=== PATIENT | female | born 1945 | race Caucasian/White ===

== ENCOUNTER → 2018-03-24 11:01 | Outpatient (CLI) | payer MEDICARE, SELFPAY ==
--- NOTE | 2018-03-24 11:03 | RAD_ITS ---
STUDY: X-RAY - LEFT KNEE REASON FOR EXAM: Female, 72 years old. Chronic left knee pain. TECHNIQUE: 4 view(s) of the knee. COMPARISON: June 18, 2015 FINDINGS: There is generalized osteopenia unchanged. Normal visualized distal femur. Normal visualized proximal tibia and fibula. Normal proximal tibiofibular articulation. 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 The soft tissue structures are unremarkable. RAD/Knee 4 or More Views IMPRESSION: Stable osteopenia with tricompartmental arthrosis as described. Electronically Signed: Luis Fernando Lopez MD at 17:16 EDT , Service support ,
== END ==
PROVIDERS: Family Provider Internal Medicine; PCP Internal Medicine; Visit Provider Orthopaedic Surgery
DX: M25.562 Pain in left knee (principal)
CPT/HCPCS: 73564

== ENCOUNTER → 2018-05-20 13:26 | Outpatient (CLI) | payer MEDICARE, SELFPAY ==
--- NOTE | 2018-05-20 13:30 | BI_ITS ---
MAMMOGRAPHY - BILATERAL SCREENING REASON FOR EXAM: Female, 72 years old. Routine annual screening examination. PERTINENT HISTORY: Personal history of breast cancer. Prior left lumpectomy with radiation therapy. Aunt with breast cancer. TECHNIQUE: Digital bilateral breast edwin (3D mammographic acquisition) in the CC and MLO projections. 2-D mediolateral oblique (MLO) and craniocaudad (CC) views of both breasts were obtained. CAD: Full Field Digital Mammography with Computer Added Detection was performed. COMPARISON: Comparison is made with prior study dated March 24, 2017 and May 15, 2015. FINDINGS: Breast Composition: There are scattered areas of fibroglandular density. There are no dominant masses or suspicious calcifications. Once again, there is asymmetry of breast tissue where more breast tissue is seen in the retrocrural region of the right breast as compared to the left side. Stable appearance of the benign-appearing bilateral axillary lymph nodes. No other significant abnormalities are identified. There has been no significant change since the prior study. BI/SCREENING MAMM (CAD), BILAT IMPRESSION: Stable bilateral screening mammogram. Yearly follow-up mammogram recommended. (A) ASSESSMENT CATEGORY: BIRADS Category 2: Benign. A letter regarding these results will be sent to the patient by the facility within 30 days. Approximately 10% of breast cancers are not detected by mammography. A normal mammogram should not delay biopsy of a clinically suspicious abnormality. [id number] Electronically Signed: Prashant Gutierrez MD at 13:39 EST Tel [phone], Service support ,
== END ==
PROVIDERS: Family Provider Internal Medicine; PCP Internal Medicine; Referring Provider Internal Medicine; Visit Provider Internal Medicine
DX: Z12.31 Encounter for screening mammogram for malignant neoplasm of breast (principal)
CPT/HCPCS: 77063; 77067

== ENCOUNTER → 2019-06-21 13:05 | Outpatient (CLI) | payer MEDICARE, SELFPAY ==
--- NOTE | 2019-06-21 13:08 | BI_ITS ---
MAMMOGRAPHY - BILATERAL SCREENING REASON FOR EXAM: Female, 73 years old. Routine annual screening examination. PERTINENT HISTORY: Personal history of breast cancer. Prior left lumpectomy and radiation treatment. Affect with breast cancer. TECHNIQUE: Digital bilateral breast sarika (3D mammographic acquisition) in the CC and MLO projections. 2-D mediolateral oblique (MLO) and craniocaudad (CC) views of both breasts were obtained. CAD: Full Field Digital Mammography with Computer Added Detection was performed. COMPARISON: Comparison is made with prior examination dated May 20, 2018 and March 24, 2017. FINDINGS: Breast Composition: There are scattered areas of fibroglandular density. There are no dominant masses or suspicious calcifications. Stable asymmetry of breast tissue with more breast tissue is seen in the retroareolar region of the right breast as compared to the left side. Stable fat-containing bilateral axillary lymph nodes. No other significant abnormalities are identified. There has been no significant change since the prior study. BI/SCREEN MAMM (CAD) W/SARIKA BILAT IMPRESSION: Stable bilateral screening mammogram. Yearly follow-up mammogram recommended. (A) ASSESSMENT CATEGORY: BIRADS Category 2: Benign. A letter regarding these results will be sent to the patient by the facility within 30 days. Approximately 10% of breast cancers are not detected by mammography. A normal mammogram should not delay biopsy of a clinically suspicious abnormality. [id number] Electronically Signed: Prashant Gutierrez, at 14:50 EST , Service support ,
== END ==
PROVIDERS: Family Provider Internal Medicine; PCP Internal Medicine; Referring Provider Internal Medicine; Visit Provider Internal Medicine
DX: Z12.31 Encounter for screening mammogram for malignant neoplasm of breast (principal)
CPT/HCPCS: 77063; 77067

== ENCOUNTER → 2019-06-29 12:42 | Outpatient (CLI) | payer MEDICARE, SELFPAY ==
[2019-06-21 14:36] VITALS: BMI 28.9
--- NOTE | 2019-06-29 12:43 | CDU_ITS ---
Reason For Study: vertigo Rt. Velocities/BP Lt. Velocities/BP Prox CCA 122.5/20.0 cm/sec. Prox CCA 130.1/22.5 cm/sec. Mid CCA 117.4/20.6 cm/sec. Mid CCA 95.5/24.3 cm/sec. Dist CCA 132.1/22.5 cm/sec. Dist CCA 79.0/21.2 cm/sec. Prox ICA 64.2/17.6 cm/sec. Prox ICA 110.1/17.0 cm/sec. Mid ICA 74.0/15.1 cm/sec. Mid ICA 75.3/11.4 cm/sec. Dist ICA 66.7/21.2 cm/sec. Dist ICA 55.8/18.7 cm/sec. Rt. ICA/CCA = .6. Lt. ICA/CCA = .8. Prox ECA 92.5/7.7 cm/sec. Prox ECA 102.5/8.9 cm/sec. Rt. Vert. 64.2/17.6 cm/sec. Lt. Vert. 61.9/14.6 cm/sec. Right Extracranial There is intimal thickening but no significant atherosclerotic plaque noted in the right common carotid artery. There is heterogeneous, irregular atherosclerotic plaque noted in the right internal carotid artery. There is intimal thickening but no significant atherosclerotic plaque noted in the right external carotid artery. Antegrade flow is noted in the right vertebral artery. Left Extracranial There is intimal thickening but no significant atherosclerotic plaque noted in the left common carotid artery. There is heterogeneous, irregular atherosclerotic plaque noted in the left internal carotid artery. There is intimal thickening but no significant atherosclerotic plaque noted in the left external carotid artery. Antegrade flow is noted in the left vertebral artery. Procedure Carotid Duplex [id number]. The exam was diagnostic. Exam performed in department. Interpretation Summary Mild (<50%) stenosis right extracranial internal carotid. Mild (<50%) stenosis left extracranial internal carotid. Flow within the vertebral arteries is antegrade bilaterally. Ordering Physician: Eddie Guerra Performed By: Jovanni Patel RVT
--- NOTE | 2019-06-29 13:16 | ECHOD_ITS ---
Reason For Study: Murmur Procedure This was a 2D Doppler, Color Flow transthoracic echocardiogram. Exam performed in department. Left Ventricle Normal LV size. Left ventricular systolic function is normal. The estimated ejection fraction is 65 %. Stage 1 diastolic dysfunction. No regional wall motion abnormalities noted. Right Ventricle Normal RV size. Normal systolic function. Atria Normal left atrium. Normal right atrium. Mitral Valve Normal mitral valve. Tricuspid Valve Normal tricuspid valve. Mild (1+) tricuspid valve insufficiency. Pulmonary artery systolic pressure is 35 mmHg. Aortic Valve Trisinus/trileaflet aortic valve. Pulmonic Valve Normal pulmonic valve. Great Vessels Normal aortic root. The pulmonary artery is normal size. Normal inferior vena cava. Pericardium/Pleural No pericardial effusion. MMode/2D Measurements & Calculations LVIDd: 4.4 cm IVSd: 1.1 cm LVOT diam: 2.1 cm LVIDs: 2.3 cm LVPWd: 0.94 cm LVOT area: 3.3 cm2 RVDd: 2.7 cm FS: 47.2 % Ao root diam: 2.7 cm LAV(MOD-bp): 39.8 ml LA A4 area: 15.6 cm2 LA dimension: 3.9 cm LAV(MOD-bp) Indexed: 24.2 ml/m2 LAV(MOD-sp2): 39.6 ml LAV(MOD-sp4): 39.8 ml RA A4 area: 9.4 cm2 Time Measurements MV dec time: 0.24 sec Doppler Measurements & Calculations MV E max abdelrahman: 95.5 cm/sec Lat Peak E' Abdelrahman: 11.1 cm/sec Med Peak E' Abdelrahman: 10.4 cm/sec MV A max abdelrahman: 109.1 cm/sec E/E' lat: 8.6 E/E' med: 9.2 MV E/A: 0.88 MV V2 max: 128.1 cm/sec MV P1/2t max abdelrahman: 110.7 cm/sec Ao V2 max: 226.8 cm/sec MV max P.6 mmHg MV P1/2t: 86.9 msec Ao max P.6 mmHg MV V2 mean: 70.1 cm/sec MV dec slope: 373.1 cm/sec2 Ao V2 mean: 143.2 cm/sec MV mean P.3 mmHg Ao mean P.7 mmHg MV V2 VTI: 27.7 cm MVA(P1/2t): 2.5 cm2 Ao V2 VTI: 43.3 cm MVA(VTI): 3.0 cm2 RYLAN(I,D): 1.9 cm2 RYLAN(V,D): 1.7 cm2 LV V1 max: 113.8 cm/sec SV(LVOT): 82.2 ml PA V2 max: 107.9 cm/sec LV V1 max P.2 mmHg LV V1 mean P.5 mmHg LV V1 mean: 72.5 cm/sec LV V1 VTI: 24.7 cm TR max abdelrahman: 277.6 cm/sec TR max P.8 mmHg Interpretation Summary Normal LV size. Left ventricular systolic function is normal. The estimated ejection fraction is 65 %. Stage 1 diastolic dysfunction. Mild (1+) tricuspid valve insufficiency. Ordering Physician: Eddie Guerra Referring Physician: Debbie Medina M.D. Performed By: Karl Malave RCS
== END ==
PROVIDERS: Family Provider Internal Medicine; PCP Internal Medicine; Referring Provider Internal Medicine Cardiovascular Disease; Visit Provider Internal Medicine Cardiovascular Disease
DX: R01.1 Cardiac murmur, unspecified (principal); R09.89 Other specified symptoms and signs involving the circulatory and respiratory systems
CPT/HCPCS: 93306; 93880

== ENCOUNTER → 2020-01-19 12:37 | Outpatient (CLI) | payer MEDICARE, SELFPAY ==
[2019-10-24 13:16] VITALS: BMI 27.8
--- NOTE | 2020-01-19 12:40 | CT_ITS ---
STUDY: CT MAXILLOFACIAL SINUSES REASON FOR EXAM: Female, 74 years old. CHRONIC SINUSITIS X 1 YEAR RADIATION DOSAGE (If Supplied By Facility): CTDIvol = ( 33.45 ) mGy, DLP = ( 822.36 ) mGycm TECHNIQUE: The patient was scanned in a multi detector CT scanner. High resolution axial imaging was performed without the administration of intravenous contrast material. Sagittal and coronal images were reconstructed. Individualized dose optimization techniques were used for this CT. COMPARISON: None. FINDINGS: FRONTAL SINUSES: Normal aeration, without mucosal inflammatory disease. ETHMOIDAL SINUSES: Mild degree of mucosal thickening of the ethmoid sinuses bilaterally. MAXILLARY SINUSES: Mild degree of mucosal thickening of the maxillary sinuses bilaterally. SPHENOIDAL SINUSES: Normal aeration, without mucosal inflammatory disease. There is compromise of the right ostiomeatal complex due to mucosal hypertrophy.. Normal bilateral middle turbinates. There is hypertrophy of the bilateral inferior nasal turbinates. Normal midline nasal septum. There is patency of the bilateral nasal airways. The visualized osseous structures are normal. The visualized bilateral orbital contents are normal. CT/Sinus/Facial Bone IMPRESSION: Mild degree of mucosal thickening of the ethmoid sinuses and maxillary sinuses bilaterally with compromise of the ostiomeatal complex on the right side due to mucosal hypertrophy. Electronically Signed: Prashant Gutierrez, at 13:35 EDT , Service support ,
== END ==
PROVIDERS: PCP Internal Medicine; Referring Provider Otolaryngology; Visit Provider Otolaryngology
DX: J32.9 Chronic sinusitis, unspecified (principal)
CPT/HCPCS: 70486

== ENCOUNTER → 2020-02-09 18:07 | Outpatient (CLI) | payer MEDICARE, SELFPAY ==
[2019-10-24 13:16] VITALS: BMI 27.8
== END ==
PROVIDERS: PCP Internal Medicine; Referring Provider Otolaryngology; Visit Provider Otolaryngology
DX: Z11.59 Encounter for screening for other viral diseases (principal)
CPT/HCPCS: 87635; 94799; U0003

== ENCOUNTER → 2020-12-26 09:54 | Outpatient (CLI) | payer MEDICARE, SELFPAY ==
[2020-12-12 15:50] VITALS: BMI 28.9
--- NOTE | 2020-12-26 10:01 | ECHOD_ITS ---
Reason For Study: Murmur, palps Procedure This was a 2D Doppler, Color Flow transthoracic echocardiogram. Exam performed in department. Left Ventricle Normal LV size. Left ventricular systolic function is normal. The estimated ejection fraction is 60 %. Stage 1 diastolic dysfunction. No regional wall motion abnormalities noted. Right Ventricle Normal RV size. Normal systolic function. Tricuspid Valve Normal tricuspid valve. Mild (1+) tricuspid valve insufficiency. Pulmonary artery systolic pressure is 30 mmHg. Aortic Valve Trisinus/trileaflet aortic valve. Mild focal aortic valve calcification. Peak aortic valve gradient 19 mmHg. Mean aortic valve gradient 10 mmHg. Mild aortic stenosis. Pulmonic Valve Normal pulmonic valve. Great Vessels Normal aortic root. The pulmonary artery is normal size. Normal inferior vena cava. Pericardium/Pleural No pericardial effusion. MMode/2D Measurements & Calculations LVIDd: 4.4 cm IVSd: 1.0 cm LVOT diam: 2.0 cm LVIDs: 2.5 cm LVPWd: 0.93 cm LVOT area: 3.1 cm2 RVDd: 2.6 cm FS: 42.1 % Ao root diam: 2.6 cm LAV(MOD-bp): 47.9 ml LVAd ap4: 21.6 cm2 LAV(MOD-bp) Indexed: 28.4 ml/m2 LVLd ap4: 6.6 cm LAV(MOD-sp2): 43.8 ml EDV(MOD-sp4): 57.2 ml LAV(MOD-sp4): 47.0 ml EDV(sp4-el): 59.9 ml LVAs ap4: 12.6 cm2 LVLs ap4: 5.6 cm ESV(MOD-sp4): 23.7 ml ESV(sp4-el): 24.1 ml EF(MOD-sp4): 58.7 % EF(sp4-el): 59.8 % SV(MOD-sp4): 33.6 ml SV(MOD-sp2): 42.1 ml LVAd ap2: 22.6 cm2 LVLd ap2: 6.9 cm EDV(MOD-sp2): 62.8 ml EDV(sp2-el): 62.8 ml LVAs ap2: 12.2 cm2 LVLs ap2: 6.2 cm ESV(MOD-sp2): 20.6 ml ESV(sp2-el): 20.5 ml EF(MOD-sp2): 67.1 % SV(sp4-el): 35.8 ml LA A4 area: 17.1 cm2 LA dimension(2D): 3.4 cm RA A4 area: 10.7 cm2 Doppler Measurements & Calculations MV E max abdelrahman: 79.0 cm/sec Lat Peak E' Abdelrahman: 8.1 cm/sec Med Peak E' Abdelrahman: 6.9 cm/sec MV A max abdelrahman: 87.2 cm/sec E/E' lat: 9.7 E/E' med: 11.5 MV E/A: 0.91 Ao V2 max: 218.9 cm/sec LV V1 max: 100.5 cm/sec SV(LVOT): 73.4 ml Ao max P.2 mmHg LV V1 max P.0 mmHg Ao V2 mean: 149.3 cm/sec LV V1 mean P.3 mmHg Ao mean P.0 mmHg LV V1 mean: 72.6 cm/sec Ao V2 VTI: 48.0 cm LV V1 VTI: 24.1 cm RYLAN(I,D): 1.5 cm2 RYLAN(V,D): 1.4 cm2 PA V2 max: 88.9 cm/sec TR max abdelrahman: 258.2 cm/sec TR max P.7 mmHg ECHO/Echo Complete Interpretation Summary Normal LV size. Left ventricular systolic function is normal. The estimated ejection fraction is 60 %. Stage 1 diastolic dysfunction. Mild focal aortic valve calcification. Mild aortic stenosis. Ordering Physician: Eddie Guerra Referring Physician: Debbie Medina M.D. Performed By: Fay Bower RDCS
== END ==
PROVIDERS: PCP Internal Medicine; Referring Provider Internal Medicine Cardiovascular Disease; Visit Provider Internal Medicine Cardiovascular Disease
DX: R00.2 Palpitations (principal)
CPT/HCPCS: 93306

== ENCOUNTER → 2021-01-02 06:09 | Outpatient (CLI) | payer MEDICARE, SELFPAY ==
[2020-12-12 15:50] VITALS: BMI 28.9
--- NOTE | 2021-01-02 19:06 | STRESSREP ---
Stress Test Report From a allergic myocardial perfusion stress test. 75-year-old lady with a history of chest pain and aortic stenosis. Stress protocol: Rest EKG demonstrates normal sinus rhythm with a rate of 70 bpm normal intervals are noted resting blood pressure is 150/84 mmHg. 0.4 mg of regadenoson was infused per usual protocol followed by rapid intravenous saline flush injection continuous EKG monitoring was performed. At rest there were no ST or T wave changes noted to suggest abnormal flow reserve. The maximum heart rate attained was 102 bpm which was 69% of maximum predicted heart rate the maximum workload was 1 metabolic equivalent. The final blood pressure was 140/64 mmHg. Myocardial perfusion protocol. 11.1 mCi of technetium 99m sestamibi was injected at rest. 0.4 mg of regadenoson was infused per usual protocol. At peak infusion 36.0 mCi of technetium 99m sestamibi was injected stress images were obtained stress and rest images were reconstructed and compared in the short axis vertical long horizontal long axis. Gated images were also obtained to Perfusion SPECT analysis: Review of the stress images demonstrate normal uptake of tracer noted in all areas of the myocardium. The resting images similarly demonstrate normal uptake of tracer noted in all areas of the myocardium. No reversibility is noted to suggest ischemia. No previous infarct is noted. Gated SPECT analysis: The gated ejection fraction is 85%. Conclusion: Normal pharmacologic myocardial perfusion stress test. Preserved ejection fraction.
== END ==
PROVIDERS: PCP Internal Medicine; Referring Provider Internal Medicine Cardiovascular Disease; Visit Provider Internal Medicine Cardiovascular Disease
DX: R06.09 Other forms of dyspnea (principal); R53.83 Other fatigue
CPT/HCPCS: 78452; 93017; A9500; A4216; J2785

== ENCOUNTER → 2021-01-29 08:54 | Outpatient (CLI) | payer MEDICARE, SELFPAY ==
[2020-12-12 15:50] VITALS: BMI 28.9
--- NOTE | 2021-01-29 09:04 | BD_ITS ---
STUDY: DUAL ENERGY X-RAY ABSORPTIOMETRY / DXA REASON FOR EXAM: Female, 75 years old. [id number]. The patient is postmenopausal. TECHNIQUE: Bone Mineral Density (BMD) measurements of lumbar spine and bilateral hips were obtained. COMPARISON: Comparison is made with prior study dated 03/16/2013. FINDINGS: Lumbar Spine (L1-L4): g/cm2 (0.759) / T-score (-2.6) / Z-score (-0.3) Findings are suggestive of osteoporosis with a high fracture risk. Left Femur Total: g/cm2 (0.798) / T-score (-1.2) / Z-score (0.6) Left Femoral Neck: g/cm2 (0.693) / T-score (-1.4) / Z-score (0.6) Right Femur Total: g/cm2 (0.802) / T-score (-1.2) / Z-score (0.6) Right Femoral Neck: g/cm2 (0.626) / T-score (-2.0) / Z-score (0.0) The T-Scores on the most recent prior examination were: Lumbar Spine (L1-L4): There has been improvement of bone density since the previous examination. Left Femur Total: which represents a worsening of 7.3%. Right Femur Total: which represents a worsening of 1%. BD/Dexa Bone Density Study IMPRESSION: The patient is considered osteoporotic as outlined below according to World Herman Organization (WHO) criteria with a high fracture risk. There has been worsening of bone density since the previous examination. Reference Information: The T-score is the number of standard deviations above or below the standard which is normal for young adults at their peak bone mineral density. The World Health Organization (WHO) interprets the T-scores as follows: Above -1 Normal bone density Between -1 and -2.5 Osteopenia Equal to / or below -2.5 Osteoporosis As a practical clinical guideline, osteopenia may be graded as follows: Mild -1 through -1.5 Moderate -1.6 through -2.0 Severe -2.1 through -2.4 The Z-score is the number of standard deviations above or below age-matched controls. A Z-score of less than -1.5 would be considered abnormal. References: 1. NIH Osteoporosis and Related Bone Diseases www osteo.org 2. International Society for Clinical Densitometry www iscd.org 3. National Osteoporosis Foundation www nof.org Electronically Signed: Prashant Gutierrez MD at 20:17 EDT , Service support ,
== END ==
PROVIDERS: PCP Internal Medicine; Referring Provider Internal Medicine; Visit Provider Internal Medicine
DX: Z78.0 Asymptomatic menopausal state (principal)
CPT/HCPCS: 77080

== ENCOUNTER → 2022-01-14 | Outpatient (CLI) | payer MEDICARE, SELFPAY ==
--- NOTE | 2022-01-14 13:50 | ECHOD_ITS ---
Version 2 Reason For Study: AORTIC STENOSIS Procedure This was a 2D Doppler, Color Flow transthoracic echocardiogram. Exam performed in department. Left Ventricle Normal LV size. Left ventricular systolic function is normal. The estimated ejection fraction is 60 %. Stage 1 diastolic dysfunction. No regional wall motion abnormalities noted. Right Ventricle Normal RV size. Normal systolic function. Atria Normal left atrium. Normal right atrium. Mitral Valve Normal mitral valve. Tricuspid Valve Normal tricuspid valve. Mild (1+) tricuspid valve insufficiency. Pulmonary artery systolic pressure is 40 mmHg. Aortic Valve Normal aortic valve. Trisinus/trileaflet aortic valve. Peak aortic valve gradient 23 mmHg. Mean aortic valve gradient 13 mmHg. Mild aortic stenosis. Pulmonic Valve Normal pulmonic valve. Great Vessels Normal aortic root. The pulmonary artery is normal size. Normal inferior vena cava. Pericardium/Pleural No pericardial effusion. MMode/2D Measurements & Calculations LVIDd: 3.6 cm IVSd: 0.97 cm CO(Teich): 3.3 l/min LVIDs: 2.2 cm LVPWd: 1.0 cm RVDd: 2.2 cm FS: 39.1 % Ao root diam: 2.7 cm LAV(MOD-bp): 57.5 ml LVAd ap4: 21.9 cm2 LAV(MOD-bp) Indexed: 35.3 ml/m2 LVLd ap4: 6.9 cm LAV(MOD-sp2): 69.7 ml EDV(MOD-sp4): 56.4 ml LAV(MOD-sp4): 46.8 ml EDV(sp4-el): 59.2 ml LVAs ap4: 11.6 cm2 LVLs ap4: 5.2 cm ESV(MOD-sp4): 22.1 ml ESV(sp4-el): 22.0 ml EF(MOD-sp4): 60.8 % EF(sp4-el): 62.8 % CO(MOD-sp4): 2.9 l/min SV(sp4-el): 37.2 ml LA A4 area: 16.8 cm2 SV(MOD-sp4): 34.3 ml LA dimension(2D): 3.6 cm RA A4 area: 12.8 cm2 Time Measurements MV dec time: 0.18 sec Doppler Measurements & Calculations MV E max franklin: 82.5 cm/sec Ao V2 max: 238.3 cm/sec MV A max franklin: 88.9 cm/sec MV dec slope: 464.7 cm/sec2 Ao max P.8 mmHg MV E/A: 0.93 Ao V2 mean: 168.1 cm/sec Ao mean P.8 mmHg Ao V2 VTI: 52.6 cm LV V1 max: 113.4 cm/sec MR max franklin: 468.5 cm/sec PA V2 max: 98.0 cm/sec LV V1 max P.1 mmHg MR max P.8 mmHg PA V2 mean: 77.2 cm/sec LV V1 mean P.9 mmHg LV V1 mean: 80.1 cm/sec LV V1 VTI: 25.8 cm TR max franklin: 302.9 cm/sec TR max P.7 mmHg ECHO/Echo Complete Interpretation Summary Normal LV size. Left ventricular systolic function is normal. The estimated ejection fraction is 60 %. Mean aortic valve gradient 13 mmHg. Mild aortic stenosis. Pulmonary artery systolic pressure is 40 mmHg. Stage 1 diastolic dysfunction. Compared to previous study, the left ventricular systolic function is the same. . Ordering Physician: Eddie Guerra Referring Physician: Eddie Guerra Performed By: Nayeli Mcmahan RCS
== END | disposition home or self-care (01) ==
PROVIDERS: PCP Internal Medicine; Referring Provider Internal Medicine Cardiovascular Disease; Visit Provider Internal Medicine Cardiovascular Disease
DX: I35.0 Nonrheumatic aortic (valve) stenosis (principal); I10 Essential (primary) hypertension; R01.1 Cardiac murmur, unspecified; R00.2 Palpitations
CPT/HCPCS: 93306

== ENCOUNTER → 2022-01-23 | Outpatient (CLI) | payer MEDICARE, SELFPAY ==
[2022-01-23 17:58] LABS: Absolute Lymphocyte Count 2.49 X10^3/uL (0.83-4.51); Absolute Neutrophil Count 4.7 X10^3/uL (2.0-7.7); Basophil# 0.05 X10^3/uL; Basophil% 0.6 % (0-1); Eosinophil# 0.26 X10^3/uL; Eosinophils% 3.1 % (0-5); Hematocrit 37.1 % (37-47); Hemoglobin 11.9 g/dL (12.0-15.0); Lymphocyte # 2.49 X10^3/ul (0.83-4.51); Mean Corp Hgb Conc 32.1 g/dL (32-36); Mean Corpuscular Hgb 29.2 pg (27.0-32.0); Mean Corpuscular Volume 90.9 fL (81-99); Mean Platelet Vol. 9.9 fl (6.2-12.0); Monocyte# 0.78 X10^3/uL; Monocyte% 9.4 % (0-10); NRBC Flagged by Analyzer 0 % (0-5); Neutrophil # 4.68 X10^3/uL (2.7-7.7); Neutrophil % 56.5 % (47-70); Platelet Count 357 K/mm3 (150-450); RBC Distribution Width CV 12.9 % (11.6-14.6); RBC Distribution Width SD 42.5 fl (35.1-43.9); Red Blood Count 4.08 M/mm3 (4.2-5.4); White Blood Count 8.3 K/mm3 (4.4-11.0)
[2022-01-23 18:20] LABS: AST(SGOT) 24 U/L (15-37); Alanine Aminotransfer ALT/SGPT 36 U/L (13-56); Albumin, Serum 3.8 g/dL (3.2-5.0); Alkaline Phosphatase 101 U/L (45-117); Anion Gap 8 (5-15); BUN 16 mg/dL (7-18); BUN/Creat Ratio 16.5 RATIO (10-20); Calcium,Total 9.2 mg/dL (8.5-10.1); Chloride 105 mmol/L (98-107); Creatinine, Serum 0.97 mg/dL (0.55-1.02); EST Glomerular Filtration Rate 59 mL/min (>60); Est Glom Filt Rate - Afr Amer 72 mL/min (>60); Glucose 92 mg/dL (74-106); Potassium 4.1 mmol/L (3.5-5.1); Protein, Total 7.8 g/dL (6.4-8.2); Rheumatoid Factor < 10.0 IU/mL (<15); Sodium Level 139 mmol/L (136-145)
[2022-01-26 08:28] LABS: Hepatitis B Surface Antibody Non-Reactive; Hepatitis B Surface Antigen Non-Reactive (Nonreactive); Hepatitis C Antibody Non-Reactive (Nonreactive)
[2022-01-26 13:07] LABS: SJOGREN'S Anti-SS-A test < 0.2 AI (0.0-0.9); SJOGREN'S Anti-SS-B test < 0.2 AI (0.0-0.9)
[2022-01-26 16:07] LABS: ANTINUCLEAR ANTIBODIES DIRECT Negative (Negative)
[2022-01-27 17:15] LABS: CCP IgG Antibodies 7 units (0-19)
== END | disposition home or self-care (01) ==
LOC: MTLAB 14:48
PROVIDERS: PCP Internal Medicine; Referring Provider Internal Medicine Rheumatology; Visit Provider Internal Medicine Rheumatology
DX: M06.4 Inflammatory polyarthropathy (principal); M79.7 Fibromyalgia; M17.0 Bilateral primary osteoarthritis of knee; K58.9 Irritable bowel syndrome, unspecified; K21.9 Gastro-esophageal reflux disease without esophagitis; G43.909 Migraine, unspecified, not intractable, without status migrainosus; M81.0 Age-related osteoporosis without current pathological fracture; I35.0 Nonrheumatic aortic (valve) stenosis; J30.2 Other seasonal allergic rhinitis
CPT/HCPCS: 36415; 80053; 85025; 86038; 86200; 86235; 86431; 86706; 86803; 87340

== ENCOUNTER → 2022-11-03 | Outpatient (CLI) | payer MEDICARE, SELFPAY ==
[2022-11-03 17:04] LABS: Absolute Lymphocyte Count 2.79 X10^3/uL (0.83-4.51); Absolute Neutrophil Count 5.2 X10^3/uL (2.0-7.7); Basophil# 0.09 X10^3/uL; Basophil% 0.9 % (0-1); Eosinophil# 0.42 X10^3/uL; Eosinophils% 4.4 % (0-5); Hematocrit 33.4 % (37-47); Hemoglobin 10.7 g/dL (12.0-15.0); Lymphocyte # 2.79 X10^3/ul (0.83-4.51); Lymphocyte % 29.2 % (19-41); Mean Corpuscular Hgb 29.8 pg (27.0-32.0); Mean Platelet Vol. 9.2 fl (6.2-12.0); Monocyte# 1.05 X10^3/uL; NRBC Flagged by Analyzer 0 % (0-5); Neutrophil # 5.15 X10^3/uL (2.7-7.7); Neutrophil % 53.8 % (47-70); Platelet Count 302 K/mm3 (150-450); RBC Distribution Width CV 13.2 % (11.6-14.6); RBC Distribution Width SD 45.5 fl (35.1-43.9); Red Blood Count 3.59 M/mm3 (4.2-5.4); White Blood Count 9.6 K/mm3 (4.4-11.0)
--- NOTE | 2022-11-03 17:05 | RAD_ITS ---
STUDY: X-RAY CHEST REASON FOR EXAM: Female, 77 years old. Shortness of breath. Scheduled for angioplasty in November 13. Mild shortness of breath and chest tightness. TECHNIQUE: PA and lateral views of the chest. COMPARISON: None. FINDINGS: The lungs are clear and expanded. There is no demonstrated pleural abnormality. Normal size heart. Normal mediastinum and jyoti. Normal visualized pulmonary arteries. There is atherosclerotic calcification of the aortic arch with tortuosity. Normal visualized thoracic spine. There is degenerative osteoarthritis of the bilateral shoulders. There is no demonstrated abnormality of the visualized soft tissue structures of the upper abdomen. RAD/Chest PA and Lateral IMPRESSION: Degenerative changes, as described above. No demonstrated acute cardiopulmonary process. Electronically Signed: Dom Islas DO at 21:07 EDT ,
[2022-11-03 17:54] LABS: Anion Gap 7 (5-15); BUN 21 mg/dL (7-18); BUN/Creat Ratio 20.4 RATIO (10-20); Calcium,Total 8.8 mg/dL (8.5-10.1); Chloride 109 mmol/L (98-107); Creatinine, Serum 1.03 mg/dL (0.55-1.02); EST Glomerular Filtration Rate 55 mL/min (>60); Est Glom Filt Rate - Afr Amer 67 mL/min (>60); Glucose 85 mg/dL (74-106); Potassium 4.1 mmol/L (3.5-5.1); Sodium Level 142 mmol/L (136-145)
== END | disposition home or self-care (01) ==
LOC: RAD 16:49
PROVIDERS: PCP Internal Medicine; Referring Provider Internal Medicine Cardiovascular Disease; Visit Provider Internal Medicine Cardiovascular Disease
DX: I10 Essential (primary) hypertension (principal); R06.02 Shortness of breath; I35.0 Nonrheumatic aortic (valve) stenosis
CPT/HCPCS: 36415; 71046; 80048; 85025

== ENCOUNTER 2022-11-13 07:02 | Day surgery (SDC) | payer MEDICARE, SELFPAY ==
[2022-11-12 08:12] VITALS: BMI 30.6
--- NOTE | 2022-11-13 08:45 | CL.D_ITS ---
Patient Name: REJI ESPINOZA Study Date: 11/13/2022 Performing: Eddie Guerra MD Ht: 61 inches 154.94 cm : 1945 Wt: 162 lbs 73.48 kg Age: 77 Gender: female BSA: 1.73 PROCEDURE(S) PERFORMED DC01-([id number])LHC/COR/LV CLINICAL PROFILE AND INDICATIONS Indications: Suspected CAD Heart Failure: None Stress/Imaging Stress/Image Study Performed: No CAD Presentations: No Sxs, no angina. CONCLUSIONS Non obstructive coronary arteries Aortic Valve Stenosis- Mild RECOMMENDATIONS Medical therapy DESCRIPTION OF PROCEDURE The patient arrived to the procedure lab. The risks and benefits of the procedure as well as a full description of our services here and current unavailability of surgical backup were fully explained to the patient and/or their significant other prior to the catheterization. The Timeout was completed, verifying the correct patient and procedure. The patient's procedural site was prepped and draped in the usual fashion. Local anesthetic was given subcutaneously to right radial region with Lidocaine 2%. Using a modified Seldinger technique, arterial access was obtained via the right radial artery, a 6Fr sheath was inserted. Left Coronary Artery selective angiography was performed in multiple views using a 5 Fr. 4.0 [place] catheter. Right Coronary Artery selective angiography was then performed in multiple views using a 5 Fr. 4.0 [place] catheter. Left Ventriculography was performed in PATEL projection using a 5 Fr. [place] catheter. LV to AO pullback pressures were then recorded.The arterial sheath was pulled and a TR Band was applied for hemostasis. 10cc air inserted. CORONARY ANGIOGRAPHY DOMINANCE: Right Dominant LEFT HEART ASSESSMENT Left Ventricular Ejection Fraction: by LV Gram 65 % Normal LV wall motion Normal Left Ventricular systolic function LEFT MAIN: No significant disease noted LEFT ANTERIOR DESCENDING ARTERY: No significant disease noted CIRCUMFLEX ARTERY: No significant disease noted RIGHT CORONARY ARTERY: No significant disease noted VALVE FINDINGS: Aortic Valve Stenosis - mild COMPLICATIONS No Complications PROCEDURE MEDICATIONS Versed 1 mg IV Fentanyl 50 mcg IV Versed 1 mg IV Oxygen: 2 L/min via nasal cannula Baby Aspirin (81mg) 1 Tabs PO 11/13/2022 07:46:13 Benadryl 50 mg IV @ 11/13/2022 07:46:40 Solu-medrol 125 mg IV 11/13/2022 07:46:29 SUMMARY OF HEMODYNAMIC DATA Time AIR REST ECG 07:25:40 AO 154/70 (108) SA 08:07:39 LV 160/-6, 6 08:16:19 LV 161/-5, 6 08:16:27 LV 161/-3, 10 08:17:16 LVp 161/-4, 10 08:17:27 AOp 155/56 (98) 08:17:34 Signed By Eddie Guerra MD On 11/13/2022 08:44:38 Eddie Guerra MD
== END 2022-11-13 10:30 | disposition home or self-care (01) ==
PROVIDERS: PCP Internal Medicine; Referring Provider Internal Medicine Cardiovascular Disease; Visit Provider Internal Medicine Cardiovascular Disease
DX: I25.10 Atherosclerotic heart disease of native coronary artery without angina pectoris (principal); I35.0 Nonrheumatic aortic (valve) stenosis; E03.9 Hypothyroidism, unspecified; I10 Essential (primary) hypertension; Z86.16 Personal history of COVID-19; Z79.899 Other long term (current) drug therapy
CPT/HCPCS: 93458; 99152; 99153; J7040; C1769; C1894; Q9967

== ENCOUNTER → 2023-12-23 | Outpatient (CLI) | payer MEDICARE, SELFPAY | END | disposition home or self-care (01) | LOC: SL 19:58 | PROVIDERS: PCP Internal Medicine; Referring Provider Nurse Practitioner Family; Visit Provider Nurse Practitioner Family | DX: G47.10 Hypersomnia, unspecified (principal); R53.83 Other fatigue | CPT/HCPCS: 95810 ==

== ENCOUNTER → 2023-12-24 | Outpatient (CLI) | payer MEDICARE, SELFPAY | END | disposition home or self-care (01) | LOC: PSN 06:07 | PROVIDERS: PCP Internal Medicine; Referring Provider Nurse Practitioner Family; Visit Provider Nurse Practitioner Family | DX: R06.02 Shortness of breath (principal); R00.2 Palpitations; I35.0 Nonrheumatic aortic (valve) stenosis; I10 Essential (primary) hypertension; R53.83 Other fatigue | CPT/HCPCS: 93225; 93226 ==

== ENCOUNTER → 2023-12-28 | Outpatient (CLI) | payer MEDICARE, SELFPAY ==
--- NOTE | 2023-12-28 12:39 | ECHOD_ITS ---
Reason For Study: SHORTNESS OF BREATH Procedure This was a 2D Doppler, Color Flow transthoracic echocardiogram. Exam performed in department. Left Ventricle Normal LV size. Left ventricular systolic function is normal. The left ventricular ejection fraction is 65 %. Stage 1 diastolic dysfunction. No regional wall motion abnormalities noted. Right Ventricle Normal RV size. Normal systolic function. Atria Normal left atrium. Normal right atrium. Mitral Valve Normal mitral valve. Tricuspid Valve Normal tricuspid valve. Mild (1+) tricuspid valve insufficiency. Pulmonary artery systolic pressure is 37 mmHg. Aortic Valve Trisinus/trileaflet aortic valve. Mild focal aortic valve calcification. Peak aortic valve gradient 28 mmHg. Mean aortic valve gradient 16 mmHg. Mild aortic stenosis. Pulmonic Valve Normal pulmonic valve. Great Vessels Normal aortic root. The pulmonary artery is normal size. Inferior vena cava collapse with respiration. Pericardium/Pleural No pericardial effusion. MMode/2D Measurements & Calculations LVIDd: 4.3 cm IVSd: 0.99 cm LVOT diam: 1.9 cm LVIDs: 2.3 cm LVPWd: 0.98 cm LVOT area: 2.7 cm2 RVDd: 2.5 cm FS: 44.8 % Ao root diam: 3.1 cm LAV(MOD-bp): 45.9 ml LVAd ap4: 19.9 cm2 LAV(MOD-bp) Indexed: 27.2 ml/m2 LVLd ap4: 6.5 cm LAV(MOD-sp2): 54.6 ml EDV(MOD-sp4): 50.2 ml LAV(MOD-sp4): 36.1 ml EDV(sp4-el): 51.8 ml LVAs ap4: 9.4 cm2 LVLs ap4: 4.9 cm ESV(MOD-sp4): 15.3 ml ESV(sp4-el): 15.4 ml EF(MOD-sp4): 69.5 % EF(sp4-el): 70.3 % LVAd ap2: 17.5 cm2 SV(MOD-sp4): 34.9 ml SV(MOD-sp2): 28.2 ml LVLd ap2: 6.4 cm EDV(MOD-sp2): 40.5 ml EDV(sp2-el): 41.0 ml LVAs ap2: 8.5 cm2 LVLs ap2: 5.2 cm ESV(MOD-sp2): 12.3 ml ESV(sp2-el): 11.8 ml EF(MOD-sp2): 69.7 % SV(sp4-el): 36.4 ml LA dimension(2D): 3.8 cm LA A4 area: 15.1 cm2 RA A4 area: 12.1 cm2 TAPSE: 1.7 cm Time Measurements MV dec time: 0.24 sec Doppler Measurements & Calculations MV E max abdelrahman: 85.2 cm/sec Lat Peak E' Abdelrahman: 10.1 cm/sec Med Peak E' Abdelrahman: 6.8 cm/sec MV A max abdelrahman: 91.5 cm/sec E/E' lat: 8.4 E/E' med: 12.5 MV E/A: 0.93 Ao V2 max: 265.3 cm/sec LV V1 max: 111.4 cm/sec MV dec slope: 361.0 cm/sec2 Ao max P.2 mmHg LV V1 max P.0 mmHg Ao V2 mean: 190.1 cm/sec LV V1 mean P.2 mmHg Ao mean P.0 mmHg LV V1 mean: 86.9 cm/sec Ao V2 VTI: 57.2 cm LV V1 VTI: 24.3 cm AV (velocity ratio): 0.42 RYLAN(I,D): 1.2 cm2 RYLAN(V,D): 1.1 cm2 SV(LVOT): 66.1 ml PA V2 max: 89.8 cm/sec TR max abdelrahman: 285.2 cm/sec PA max PG (full): 1.4 mmHg TR max P.5 mmHg ECHO/Echo Complete Interpretation Summary Normal LV size. Left ventricular systolic function is normal. The left ventricular ejection fraction is 65 %. Mild focal aortic valve calcification. Stage 1 diastolic dysfunction. Mean aortic valve gradient 16 mmHg. Mild aortic stenosis. Ordering Physician: Ranjan Mcnally Referring Physician: Debbie Medina M.D. Performed By: Nicolle Michaud RDCS
== END | disposition home or self-care (01) ==
PROVIDERS: PCP Internal Medicine; Referring Provider Nurse Practitioner Family; Visit Provider Nurse Practitioner Family
DX: R06.02 Shortness of breath (principal); I35.0 Nonrheumatic aortic (valve) stenosis; R53.83 Other fatigue; R00.2 Palpitations; I10 Essential (primary) hypertension
CPT/HCPCS: 93306

== ENCOUNTER → 2024-04-28 | Outpatient (CLI) | payer MEDICARE, SELFPAY ==
--- NOTE | 2024-04-28 13:01 | CDU_ITS ---
Reason For Study: Dizziness Rt. Velocities/BP Lt. Velocities/BP Prox CCA 91.9/13.5 cm/sec. Prox CCA 86.1/13.5 cm/sec. Mid CCA 109.7/17.6 cm/sec. Mid CCA 69.6/9.1 cm/sec. Dist CCA 66.7/15.1 cm/sec. Dist CCA 60.8/13.5 cm/sec. Prox ICA 64.1/20.1 cm/sec. Prox ICA 52.2/8.8 cm/sec. Mid ICA 68.5/19 cm/sec. Mid ICA 75.9/22 cm/sec. Dist ICA 69.1/18.9 cm/sec. Dist ICA 47.1/11 cm/sec. Rt. ICA/CCA = 0.63. Lt. ICA/CCA = 1.09. Prox ECA 49.5/5.3 cm/sec. Prox ECA 57/3.1 cm/sec. Rt. Vert. 61.9/19 cm/sec. Lt. Vert. 45.4/10.2 cm/sec. Right Extracranial There is homogeneous, smooth atherosclerotic plaque noted in the right common carotid artery. There is heterogeneous, irregular atherosclerotic plaque noted in the right internal carotid artery. There is heterogeneous, irregular atherosclerotic plaque noted in the right external carotid artery. Antegrade flow is noted in the right vertebral artery. Left Extracranial There is homogeneous, smooth atherosclerotic plaque noted in the left common carotid artery. There is heterogeneous, irregular atherosclerotic plaque noted in the left internal carotid artery. There is heterogeneous, irregular atherosclerotic plaque noted in the left external carotid artery. Antegrade flow is noted in the left vertebral artery. Procedure Carotid Duplex [id number]. This is a Carotid Duplex examination using B-mode, color flow and specral Doppler. Exam performed in department. VL/Carotid Duplex Ultrasound Interpretation Summary Mild (<50%) stenosis right extracranial internal carotid. Mild (<50%) stenosis left extracranial internal carotid. Patent and antegrade vertebrals bilaterally. Ordering Physician: Nicky Romo Referring Physician: Debbie Medina M.D. Performed By: Carol Stoll RVT
== END | disposition home or self-care (01) ==
PROVIDERS: PCP Internal Medicine; Referring Provider Nurse Practitioner Gerontology; Visit Provider Nurse Practitioner Gerontology
DX: R42 Dizziness and giddiness (principal)
CPT/HCPCS: 93880

== ENCOUNTER → 2024-11-30 | Outpatient (CLI) | payer MEDICARE, SELFPAY ==
[2024-11-30 10:34] LABS: Pro- Brain NATRIURETIC PEPTIDE 230 pg/mL (<=1800)
[2024-11-30 10:38] LABS: Anion Gap 11 (5-15); BUN 17 mg/dL (4-19); BUN/Creat Ratio 16.3 RATIO (10-20); Calcium,Total 8.9 mg/dL (7.6-11.0); Carbon Dioxide 22.6 mmol/L (21.0-32.0); Chloride 104 mmol/L (98-108); Creatinine, Serum 1.04 mg/dL (0.70-1.20); EST Glomerular Filtration Rate 55 (>60); Glucose 105 mg/dL (70-99); Potassium 3.9 mmol/L (3.3-5.1); Sodium Level 138 mmol/L (133-145)
== END | disposition home or self-care (01) ==
LOC: LAB 08:45
PROVIDERS: PCP Internal Medicine; Referring Provider Nurse Practitioner Gerontology; Visit Provider Nurse Practitioner Gerontology
DX: R06.02 Shortness of breath (principal)
CPT/HCPCS: 36415; 80048; 83880

== ENCOUNTER → 2025-05-03 | Outpatient (CLI) | payer MEDICARE, SELFPAY ==
[2025-05-03 18:10] LABS: Hematocrit 33.7 % (37-47); Hemoglobin 11.3 g/dL (12.0-15.0); Immature Granulocytes Count 0.040 X10^3/uL (0.0-0.0); Mean Corp Hgb Conc 33.5 g/dL (32-36); Mean Corpuscular Volume 87.1 fL (81-99); Mean Platelet Vol. 9.9 fl (6.2-12.0); NRBC Flagged by Analyzer 0 % (0-5); Platelet Count 338 K/mm3 (150-450); RBC Distribution Width CV 12.9 % (11.6-14.6); RBC Distribution Width SD 41.1 fl (35.1-43.9); Red Blood Count 3.87 M/mm3 (4.2-5.4); White Blood Count 8.8 K/mm3 (4.4-11.0)
[2025-05-03 19:27] LABS: Anion Gap 11 (5-15); BUN 18 mg/dL (4-19); BUN/Creat Ratio 15.2 RATIO (10-20); Calcium,Total 9.8 mg/dL (7.6-11.0); Carbon Dioxide 26.3 mmol/L (21.0-32.0); Chloride 97 mmol/L (98-108); Glucose 96 mg/dL (70-99); Potassium 4.7 mmol/L (3.3-5.1); Pro- Brain NATRIURETIC PEPTIDE 454 pg/mL (<=1800); Vitamin D,25 Hydroxy 61.3 ng/mL (30-100)
== END | disposition home or self-care (01) ==
LOC: MTLAB 15:40
PROVIDERS: PCP Internal Medicine; Referring Provider Nurse Practitioner Gerontology; Visit Provider Nurse Practitioner Gerontology
DX: R06.02 Shortness of breath (principal); E55.9 Vitamin D deficiency, unspecified
CPT/HCPCS: 36415; 80048; 82306; 83880; 85025